=== PATIENT | male | born 1975 | race Caucasian/White ===

== ENCOUNTER → 2019-07-15 | Outpatient (CLI) | payer OTHER ==
--- NOTE | 2019-07-15 12:26 | RAD ---
SHOULDER 2+V RIGHT DATE: 07/15/2019 12:00 AM INDICATION: Right shoulder pain COMPARISON: None. FINDINGS: Bones: There is no evidence of acute fracture or dislocation. Joints: Mild degenerative changes of the acromioclavicular joint. Glenohumeral joint is congruent. The acromiohumeral distance is not narrowed. Miscellaneous: No abnormal soft tissue calcifications in the shoulder. IMPRESSION: 1. No acute osseous abdomen body. 2. Mild AC joint degenerative changes. Electronically signed by: Ervin Tay MD (07/15/2019 12:23 PM) [facility]
== END | disposition home or self-care (01) ==
LOC: PMG 10:17
PROVIDERS: ATTEND Registered Nurse
DX: M19.011 Primary osteoarthritis, right shoulder (principal)
CPT/HCPCS: 73030